=== PATIENT | male | born 1945 | race Caucasian/White ===

== ENCOUNTER 2019-07-21 12:04 | Day surgery (SDC) | payer MEDICARE ==
[~2019-07-21] VITALS: Ht 177.8 cm; Wt 127.8 kg
[~2019-07-21 12:04] MED LIST: BIOT25008 PO; CALC-793 PO; CALC-861 PO; CELE-193 PO; CETI-102 PO; CYAN100019 PO; CYAN10006 IM; DOCU-21 PO; FERR325T39 PO; FLO0.4C PO; FURO-149 PO; HYDR-4353 PO; LEVO100T9 PO; MAG CITRATE; MAGN500C16 PO; MELA3TAB64 PO; MORP30CA16 PO; MULT1TAB74 PO; OMEP20CA11 PO; POTA-82 PO; PROP10TA10 PO; SPIR25TA5 PO; TIZA2TAB5 PO; ZAR2.5T PO
[2019-07-21] MEDS ORDERED: normal saline 1,000 ML IV SCH (12:35)
[2019-07-21] MEDS ORDERED: diphenhydrAMINE 25mg capsule PO PRN (12:35)
[2019-07-21 12:40] VITALS: BP 124/68
[2019-07-21 12:56] LABS: BASOPHILS # (AUTO) 0.1 X10'3 (0-0.2); BASOPHILS % (AUTO) 1.1 % (0-1); EOSINOPHILS # (AUTO) 0.2 X10'3 (0-0.9); EOSINOPHILS % (AUTO) 4.2 % (0-6); HEMATOCRIT 42.5 % (42.0-52.0); LYMPHOCYTES # (AUTO) 1.5 X10'3 (1.1-4.8); LYMPHOCYTES % (AUTO) 29.7 % (21-51); MEAN CORPUSCULAR HEMOGLOBIN 32.9 PG (27.0-31.0); MEAN CORPUSCULAR HGB CONC 33.1 g/dL (33.0-36.5); MEAN CORPUSCULAR VOLUME 99.4 FL (78-98); MEAN PLATELET VOLUME 8.2 FL (7.4-10.4); MONOCYTES # (AUTO) 0.6 X10'3 (0-0.9); MONOCYTES % (AUTO) 12.1 % (2-12); NEUTROPHILS # (AUTO) 2.7 X10'3 (1.8-7.7); NEUTROPHILS % (AUTO) 52.9 % (42-75); PLATELET COUNT 193 X10'3 (140-440); RED BLOOD COUNT 4.27 X10'6 (4.70-6.10); RED CELL DISTRIBUTION WIDTH 14.9 % (11.5-14.5); WHITE BLOOD COUNT 5.1 X10'3 (4.5-11.0)
[2019-07-21 13:07] LABS: ALBUMIN 3.5 G/DL (3.4-5.0); ANION GAP 10 (8-16); BLOOD UREA NITROGEN 26 MG/DL (7-18); BUN/CREATININE RATIO 20.8 (5.4-32.0); CALCIUM 8.1 MG/DL (8.5-10.1); CHLORIDE 103 MMOL/L (99-107); CREATININE 1.25 MG/DL (0.60-1.10); GLUCOSE 105 MG/DL (70-104); MAGNESIUM 1.8 MG/DL (1.5-2.4); POTASSIUM 3.6 MMOL/L (3.5-5.1); SODIUM 140 MMOL/L (135-145); TOTAL CARBON DIOXIDE 27.2 MMOL/L (24-32); eGFR 56 ML/MIN
[2019-07-21] MEDS ORDERED: [UNRECOGNIZED DRUG - CODE] PO (13:28)
[2019-07-21] MEDS ORDERED: ASPI-1264 PO (13:28)
[2019-07-21] MEDS ORDERED: CYCL-1 PO (13:28)
[2019-07-21] MEDS ORDERED: VITC500T PO (13:28)
[2019-07-21] MEDS ORDERED: DIPH25CA83 PO (13:28)
[2019-07-21] MEDS ORDERED: CITA10TA9 PO (13:28)
[2019-07-21] MEDS ORDERED: ACET-2119 PO (13:28)
[2019-07-21] MEDS ORDERED: DIGO125T PO (13:28)
[2019-07-21] MEDS ORDERED: ALBU8HFA PO (13:28)
[2019-07-21] MEDS ORDERED: GLUC-133 PO (13:28)
[2019-07-21] MEDS ORDERED: iohexol 350 MG/ML 50ML vial IV ONE (15:38)
[2019-07-21] MEDS ORDERED: vancomycin 1,000mg inj ONE ×2 (15:38→15:47)
[2019-07-21] MEDS ORDERED: ceFAZolin 1000mg inj ONE (15:38)
[2019-07-21] MEDS ORDERED: LIDOcaine 1% W/epiNEPHrine 1:100,000 20ml vial ONE (15:38)
[2019-07-21] MEDS ORDERED: cefazolin/dext.iso 2gm/50ml 50 ML IV PRN (16:05)
[2019-07-21] MEDS ORDERED: vancomycin/NS 1 GM ADD-VANTAGE 250 ML X 1 DOSE IV PRN (16:05)
[2019-07-21] MEDS ORDERED: fentaNYL/PF 50MCG/1 ML 2ML syringe ONE (16:25)
[2019-07-21] MEDS ORDERED: midazolam 2 mg/2 ml injection ONE ×6 (16:25→17:07)
[2019-07-21 17:50] VITALS: BP 112/47
[2019-07-21 18:00] VITALS: BP 98/60
[2019-07-21 18:15] VITALS: BP 110/87
[2019-07-21 18:40] VITALS: BP 137/42
[2019-07-21 19:00] VITALS: BP 140/69
== END 2019-07-21 19:35 | disposition home or self-care (01) ==
LOC: SSTAY O 12:04
PROVIDERS: ATTEND Internal Medicine Cardiovascular Disease
DX: R06.02 Shortness of breath (principal); I42.0 Dilated cardiomyopathy; I44.7 Left bundle-branch block, unspecified; R53.83 Other fatigue; I50.9 Heart failure, unspecified; R07.9 Chest pain, unspecified; Z79.899 Other long term (current) drug therapy; Z95.0 Presence of cardiac pacemaker; Z98.84 Bariatric surgery status; Z98.890 Other specified postprocedural states; I47.2 Ventricular tachycardia; Z45.018 Encounter for adjustment and management of other part of cardiac pacemaker
CPT/HCPCS: 33225; 33229; 36415; 71046; 80048; 83735; 85025; 85610; 93005; 99152; 99153; C1769; C1887; C1894; C1900; C2621; J0690; J2250; J3010; J3370; J7030; J7050; Q0163; Q9967; 33224; A4565; A4620; A4663; C1882

== ENCOUNTER 2021-05-09 09:26 | Day surgery (SDC) | payer MEDICARE ==
[2021-05-09] VITALS (9 sets, daily range): BP systolic 121–137; BP diastolic 67–89
[~2021-05-09] VITALS: Ht 175.3 cm; Wt 123.3 kg
[~2021-05-09 09:26] MED LIST changes: +ACET-2119 PO; +ALBU8HFA PO; +ASPI-1264 PO; -CALC-793 PO; -CALC-861 PO; -CELE-193 PO; -CETI-102 PO; +CETI-90 PO; +CITA10TA9 PO; +CYCL-1 PO; +DIGO125T PO; +DIPH25CA83 PO; +GLUC-133 PO; -MAG CITRATE; +MELA3TAB39 PO; -MELA3TAB64 PO; -MORP30CA16 PO; +MULT-620 PO; -MULT1TAB74 PO; -OMEP20CA11 PO; -PROP10TA10 PO; -TIZA2TAB5 PO; +VITC500T PO; +[UNRECOGNIZED DRUG - CODE] PO
[2021-05-09] MEDS ORDERED: ceFAZolin inj. 3,000 MG in normal saline 100ml IV soln 100 ML IV ONE (09:51)
[2021-05-09] MEDS ORDERED: vancomycin 1,500 MG in NS 300ml IV soln IV ONE (09:52)
[2021-05-09] MEDS ORDERED: normal saline 1000ml 1,000 ML IV SCH (09:55)
[2021-05-09] MEDS ORDERED: ceFAZolin inj. 3,000 MG in dextrose 5%-water 100 ML IV ONE (09:58)
[2021-05-09 10:27] LABS: BASOPHILS % (AUTO) 1.1 % (0-1); EOSINOPHILS # (AUTO) 0.2 X10'3 (0-0.9); EOSINOPHILS % (AUTO) 5.7 % (0-6); HEMATOCRIT 42.4 % (42.0-52.0); HEMOGLOBIN 13.9 g/dl (14.0-17.9); LYMPHOCYTES # (AUTO) 1.1 X10'3 (1.1-4.8); LYMPHOCYTES % (AUTO) 27.5 % (21-51); MEAN CORPUSCULAR HEMOGLOBIN 33.3 PG (27.0-31.0); MEAN CORPUSCULAR HGB CONC 32.9 g/dL (33.0-36.5); MEAN CORPUSCULAR VOLUME 101.4 FL (78-98); MEAN PLATELET VOLUME 8.1 FL (7.4-10.4); MONOCYTES # (AUTO) 0.5 X10'3 (0-0.9); MONOCYTES % (AUTO) 13.4 % (2-12); NEUTROPHILS % (AUTO) 52.3 % (42-75); PLATELET COUNT 214 X10'3 (140-440); RED BLOOD COUNT 4.18 X10'6 (4.70-6.10); RED CELL DISTRIBUTION WIDTH 16.7 % (11.5-14.5); WHITE BLOOD COUNT 3.9 X10'3 (4.5-11.0)
[2021-05-09 10:40] LABS: ALBUMIN 3.7 G/DL (3.4-5.0); BLOOD UREA NITROGEN 19 MG/DL (7-18); BUN/CREATININE RATIO 15.8 (5.4-32.0); CALCIUM 7.5 MG/DL (8.5-10.1); GLUCOSE 100 MG/DL (70-104); MAGNESIUM 1.9 MG/DL (1.5-2.4); POTASSIUM 3.2 MMOL/L (3.5-5.1); SODIUM 142 MMOL/L (135-145); TOTAL CARBON DIOXIDE 27.8 MMOL/L (24-32); eGFR 59 ML/MIN
[2021-05-09 10:41] LABS: ANION GAP 9 (8-16); CHLORIDE 105 MMOL/L (99-107)
[2021-05-09] MEDS ORDERED: fentaNYL/PF 50MCG/1 ML 2ML syringe ONE ×2 (11:24→13:42)
[2021-05-09] MEDS ORDERED: midazolam 1 mg/ML 2ml injection ONE ×5 (11:24→13:50)
[2021-05-09] MEDS ORDERED: LIDOCAINE 2% w/EPI 1:100:000 30mL injection MDV**cath lab 1 only ONE (11:26)
[2021-05-09] MEDS ORDERED: vancomycin 1,000mg inj ONE (11:32)
[2021-05-09] MEDS ORDERED: FURO-150 PO (11:56)
[2021-05-09] MEDS ORDERED: FLEC100T2 PO (11:56)
[2021-05-09] MEDS ORDERED: TROS20TA4 PO (11:56)
[2021-05-09] MEDS ORDERED: ACET-75 PO (11:56)
[2021-05-09] MEDS ORDERED: ZAR5T PO (11:56)
[2021-05-09] MEDS ORDERED: PANT-47 PO (11:56)
[2021-05-09] MEDS ORDERED: FERR134T2 PO (11:56)
[2021-05-09] MEDS ORDERED: CLOP75TA15 PO (11:56)
[2021-05-09] MEDS ORDERED: CALC600T21 PO (11:56)
[2021-05-09] MEDS ORDERED: MYCOL15O TOP (11:56)
[2021-05-09] MEDS ORDERED: iohexol 350 MG/ML 50ML vial IV ONE (12:28)
== END 2021-05-09 17:00 | disposition home or self-care (01) ==
LOC: SSTAY O 09:26
PROVIDERS: ATTEND Internal Medicine Cardiovascular Disease
DX: Z45.02 Encounter for adjustment and management of automatic implantable cardiac defibrillator (principal); I42.0 Dilated cardiomyopathy; I11.0 Hypertensive heart disease with heart failure; I50.22 Chronic systolic (congestive) heart failure; I48.91 Unspecified atrial fibrillation; Z79.899 Other long term (current) drug therapy; Z79.01 Long term (current) use of anticoagulants; Z98.84 Bariatric surgery status; Z87.442 Personal history of urinary calculi; Z98.890 Other specified postprocedural states; Z98.41 Cataract extraction status, right eye; Z98.42 Cataract extraction status, left eye; Z96.653 Presence of artificial knee joint, bilateral; Z82.3 Family history of stroke
CPT/HCPCS: 33225; 33241; 33244; 33249; 36415; 71045; 80048; 83735; 85025; 85610; 93005; 99152; 99153; C1769; C1777; C1882; C1887; C1894; C1900; J2250; J3010; J3370; J7030; J7040; Q9967; 33216; 33235; 33264; A4565; A4620; A6258

== ENCOUNTER 2023-03-19 10:11 | Day surgery (SDC) | payer MEDICARE ==
[2023-03-19] VITALS (11 sets, daily range): BP systolic 97–124; BP diastolic 66–82
[~2023-03-19] VITALS: Ht 179.1 cm; Wt 112.1 kg
[~2023-03-19 10:11] MED LIST changes: -ACET-2119 PO; +ACET-75 PO; -ASPI-1264 PO; -BIOT25008 PO; +CALC600T21 PO; -CITA10TA9 PO; +CITA10TA93 PO; +CLOP75TA15 PO; -CYAN10006 IM; -DIGO125T PO; +FERR134T2 PO; -FERR325T39 PO; +FLEC100T2 PO; -FURO-149 PO; +FURO-150 PO; -HYDR-4353 PO; -MAGN500C16 PO; +MAGN500C4 PO; +MYCOL15O TOP; +PANT-47 PO; +POTA-366 PO; -POTA-82 PO; +TROS20TA4 PO; -ZAR2.5T PO; +ZAR5T PO; -[UNRECOGNIZED DRUG - CODE] PO
[2023-03-19] MEDS ORDERED: fentaNYL/PF 50MCG/1 ML 2ML syringe IV ONE (10:40)
[2023-03-19] MEDS ORDERED: normal saline 1000ml 1,000 ML IV SCH (10:40)
[2023-03-19] MEDS ORDERED: MIDAZolam 1mg/ml 10ml vial IV ONE (10:40)
[2023-03-19] MEDS ORDERED: EMPA10TA PO (11:01)
[2023-03-19] MEDS ORDERED: FURO40TA4 PO (11:01)
[2023-03-19] MEDS ORDERED: FLUT1BLS4 INH (11:01)
[2023-03-19] MEDS ORDERED: CELE-193 PO (11:01)
[2023-03-19] MEDS ORDERED: HYDR-3972 PO (11:01)
[2023-03-19 11:33] LABS: BASOPHILS % (AUTO) 1.3 % (0-1); EOSINOPHILS # (AUTO) 0.1 X10'3 (0-0.9); EOSINOPHILS % (AUTO) 5.1 % (0-6); HEMATOCRIT 36.1 % (42.0-52.0); HEMOGLOBIN 11.5 g/dl (14.0-17.9); LYMPHOCYTES # (AUTO) 0.9 X10'3 (1.1-4.8); LYMPHOCYTES % (AUTO) 30.8 % (21-51); MEAN CORPUSCULAR HEMOGLOBIN 32.2 PG (27.0-31.0); MEAN CORPUSCULAR HGB CONC 31.8 g/dL (33.0-36.5); MEAN CORPUSCULAR VOLUME 101.1 FL (78-98); MONOCYTES # (AUTO) 0.5 X10'3 (0-0.9); MONOCYTES % (AUTO) 17.3 % (2-12); NEUTROPHILS # (AUTO) 1.3 X10'3 (1.8-7.7); NEUTROPHILS % (AUTO) 45.5 % (42-75); PLATELET COUNT 212 X10'3 (140-440); RED BLOOD COUNT 3.57 X10'6 (4.70-6.10); RED CELL DISTRIBUTION WIDTH 19.2 % (11.5-14.5); WHITE BLOOD COUNT 2.9 X10'3 (4.5-11.0)
[2023-03-19 11:39] LABS: ALBUMIN 3.1 G/DL (3.4-5.0); ANION GAP 7 (8-16); BLOOD UREA NITROGEN 25 MG/DL (7-18); CALCIUM 8.3 MG/DL (8.5-10.1); CHLORIDE 104 MMOL/L (99-107); GLUCOSE 92 MG/DL (70-104); MAGNESIUM 2.1 MG/DL (1.5-2.4); POTASSIUM 3.3 MMOL/L (3.5-5.1); SODIUM 140 MMOL/L (135-145); TOTAL CARBON DIOXIDE 28.6 MMOL/L (24-32); eGFR 72 ML/MIN
[2023-03-19 11:55] LABS: ANISOCYTOSIS 2+; PLATELET ESTIMATE NORMAL; TOTAL CELLS COUNTED 100
[2023-03-19 11:57] LABS: BURR CELLS FEW; SCHISTOCYTES FEW
== END 2023-03-19 13:20 | disposition home or self-care (01) ==
LOC: SSTAY O 10:11
PROVIDERS: ATTEND Internal Medicine Cardiovascular Disease
DX: I48.91 Unspecified atrial fibrillation (principal); I48.3 Typical atrial flutter; I42.9 Cardiomyopathy, unspecified; I10 Essential (primary) hypertension; Z95.0 Presence of cardiac pacemaker; Z98.41 Cataract extraction status, right eye; Z98.42 Cataract extraction status, left eye; Z98.890 Other specified postprocedural states; Z96.653 Presence of artificial knee joint, bilateral; Z82.3 Family history of stroke
CPT/HCPCS: 80048; 83735; 85025; 85610; 92960; 93005; J2250; J3010; J7030; 85007; A4620

== ENCOUNTER 2023-06-13 09:56 | Day surgery (SDC) | payer MEDICARE ==
[~2023-06-13] VITALS: Ht 177.8 cm; Wt 127.9 kg
[~2023-06-13 09:56] MED LIST changes: -ALBU8HFA PO; +CELE-193 PO; -CLOP75TA15 PO; +EMPA10TA PO; +FLUT1BLS4 INH; -FURO-150 PO; +FURO40TA4 PO; +HYDR-3972 PO
[2023-06-13 10:26] VITALS: BP 102/70; PULSE 80; RESP 18; TEMP 97.8; O2SAT 97
[2023-06-13] MEDS ORDERED: MIDAZolam 1mg/ml 10ml vial IV ONE (10:30)
[2023-06-13] MEDS ORDERED: normal saline 1000ml 1,000 ML IV SCH (10:30)
[2023-06-13] MEDS ORDERED: fentaNYL/PF 50MCG/1 ML 2ML syringe IV ONE (10:30)
[2023-06-13] MEDS ORDERED: TEST200V33 IM (10:39)
[2023-06-13] MEDS ORDERED: NYST15PO4 TOP (10:39)
[2023-06-13] MEDS ORDERED: FLEC100T PO (10:39)
[2023-06-13] MEDS ORDERED: LEVO125T8 PO (10:39)
[2023-06-13] MEDS ORDERED: METO-395 PO (10:39)
[2023-06-13] MEDS ORDERED: LISI2.5T14 PO (10:39)
[2023-06-13] MEDS ORDERED: GABA-530 PO (10:48)
[2023-06-13 11:12] VITALS: RESP 18; O2SAT 97
[2023-06-13 11:43] VITALS: BP 105/73; PULSE 76; RESP 16; O2SAT 96
== END 2023-06-13 12:30 | disposition home or self-care (01) ==
LOC: SSTAY O 09:56
PROVIDERS: ATTEND Internal Medicine Cardiovascular Disease
DX: I08.3 Combined rheumatic disorders of mitral, aortic and tricuspid valves (principal); I42.9 Cardiomyopathy, unspecified; I10 Essential (primary) hypertension; I48.91 Unspecified atrial fibrillation; Z95.0 Presence of cardiac pacemaker; Z79.82 Long term (current) use of aspirin; Z79.899 Other long term (current) drug therapy; Z96.653 Presence of artificial knee joint, bilateral; Z98.84 Bariatric surgery status; Z98.41 Cataract extraction status, right eye; Z98.42 Cataract extraction status, left eye; Z98.890 Other specified postprocedural states; Z96.611 Presence of right artificial shoulder joint; Z87.442 Personal history of urinary calculi; Z82.3 Family history of stroke
CPT/HCPCS: 93308; A4620; J7030